=== PATIENT | female | born 1970 | race Caucasian/White ===

== ENCOUNTER → 2023-08-31 11:22 | Outpatient (REF) | payer OTHER, SELFPAY | LOC: HWEVLT 11:22 | PROVIDERS: ATTENDING PHYSICIAN Radiology Vascular & Interventional Radiology | DX: I83.891 Varicose veins of right lower extremity with other complications (principal) | CPT/HCPCS: 93971 ==

== ENCOUNTER → 2024-01-17 10:52 | Outpatient (REF) | payer OTHER, SELFPAY | LOC: HWWDC 10:52 | PROVIDERS: ATTENDING PHYSICIAN Family Medicine | DX: Z12.31 Encounter for screening mammogram for malignant neoplasm of breast (principal) | CPT/HCPCS: 77063; 77067 ==

== ENCOUNTER → 2024-10-31 17:53 | Outpatient (REF) | payer OTHER, SELFPAY | LOC: RAD 17:53 | PROVIDERS: ATTENDING PHYSICIAN Family Medicine | DX: M25.532 Pain in left wrist (principal) | CPT/HCPCS: 73110 ==

== ENCOUNTER → 2025-03-12 06:38 | Outpatient (REF) | payer OTHER, SELFPAY | LOC: HWWDC 06:38 | PROVIDERS: ATTENDING PHYSICIAN Family Medicine | DX: Z12.31 Encounter for screening mammogram for malignant neoplasm of breast (principal) | CPT/HCPCS: 77063; 77067 ==

== ENCOUNTER 2025-04-06 12:03 | Emergency (ER) | payer OTHER, SELFPAY ==
[2025-04-06 12:04] VITALS: BP 154/101
[2025-04-06 12:52] VITALS: BMI 30.2
[2025-04-06] MEDS: TORADOL 15 MG IV (13:03)
[2025-04-06] MEDS: NSS 1000 IV (13:04)
[2025-04-06 13:08] LABS: Hematocrit 39.1 % (37.0-47.0); Hemoglobin 13.3 g/dL (12.0-16.0); Mean Corp Hgb Conc. 34.0 g/dL (33.0-37.0); Mean Corpuscular Volume 85.7 fL (81.0-99.0); Nucleated Red Blood Cells % 0 %; Platelet Count 205 10^3/uL (130-400); Red Cell Dist. Width 12.4 % (11.5-14.5)
[2025-04-06 13:19] LABS: ALT (SGPT) 20 U/L (0-35); AST (SGOT) 21 U/L (14-36); Albumin 4.1 g/dl (3.5-5.0); Alkaline Phosphatase 120 U/L (38-126); Blood Urea Nitrogen 20 mg/dl (7-17); Calcium 9.6 mg/dl (8.4-10.2); Carbon Dioxide 26 mmol/L (22-30); Chloride 105 mmol/L (98-107); Estimated Creatinine Clearance 106 ml/min; Glucose 87 mg/dl (70-99); Lipase 41 U/L (23-300); Potassium 4.0 mmol/L (3.5-5.1); Sodium 136 mmol/L (135-145); Total Protein 7.0 g/dl (6.3-8.2); eGFR > 60.00
--- NOTE | 2025-04-06 13:21 | ED.GENMED ---
History of Present Illness
General
Chief Complaint: Abdominal Pain
Source: patient and spouse
Exam Limitations: none
Time Seen by Provider: 04/06/25 12:21
Nursing documentation reviewed up to this point in time: agreed with
History of Present Illness
History of Present Illness:
55-year-old female with past medical history of hypertension who presents to the emergency department with her for evaluation of abdominal pain. Patient reports onset of symptoms 2 days ago and they have been constant since that time. She
reports a sharp pain located in the left lower quadrant and occasionally radiates towards the flank. No clear triggering or relieving factors noted. She denies any associated nausea or vomiting. She has been mildly constipated last bowel movement
was Monday morning. She denies any dysuria, hematuria, change in urinary frequency. She denies any fever or chills. She denies any other acute complaints. She denies having had similar symptoms in the past. She denies any prior abdominal
surgeries.
Review of Systems
Review of Systems
All Other Systems: ROS reviewed and negative except as documented in HPI and ROS
Constitutional: Denies fever or chills
Respiratory: Denies trouble breathing
Cardiac: Denies chest pain
ABD/GI: Reports abdominal pain and constipated; Denies nausea or vomiting
: Denies dysuria, frequency, flank pain or bleeding
Musculoskeletal: Denies neck pain or back pain
Neurological: Denies dizzy or headache
Phy Exam
Physical Exam
Physical Exam:
General: Awake, alert, oriented x3; no acute distress
Head: Normocephalic, atraumatic
Eyes: Conjunctiva normal, sclera anicteric
Throat: Airway intact, handling secretions
Neck: Trachea midline
Lungs: Clear to auscultation bilaterally, no wheezing, rales, rhonchi
Heart: Regular rate and rhythm, no murmurs, gallops, or rubs
Abd: Soft, non distended, mild to moderate tenderness left lower quadrant with no peritoneal signs or appreciable masses
Back: No CVA tenderness
Neuro: Grossly intact
Skin: No rash in area of concern
Extremities: No edema in extremities, equal pulses in all extremities
Scores
Heart Failure Risk
Heart Failure Risk Score: Not Applicable
Heart Score for Chest Pain Patients
STEMI patient?: Not applicable
Withdrawal Assessment of Alcohol
Withdrawal Assessment Completed?: Not applicable
Course
Orders/Labs/Results
Orders:
Orders
04/06/25 12:53
CT Abd/pelvis W Iv Cont Urgent
Comment:
Reason For Exam: LLQ abd pain
0.9% Sodium Chloride 1000 ml [Nss] 1,000 ml IV BOLUS
Ketorolac [Toradol] 15 mg IV NOW STA
04/06/25 12:59
Complete Blood Count/With Diff Urgent
Comprehensive Metabolic Panel Urgent
Lipase Urgent
04/06/25 14:34
Lactate Level [Lactic Acid] Urgent
04/06/25 14:36
Amoxicillin 875 mg/Clav 125 mg [Augmentin 875 mg/125 mg] 1 tablet PO NOW STA
Morphine Sulfate 4 mg IV NOW STA
04/06/25 14:52
Urinalysis Reflex To Culture Urgent
Date Specimen was Collected: 04/06/25
Time Specimen was Collected: 13:20
Urine Microscopic Reflex Cult Urgent
Urine Culture Urgent
DELPHINE Source: U
Specimen Description:
Date Specimen was Collected: 04/06/25
Time Specimen was Collected: 13:20
Abnormal Lab Results
04/06/25 04/06/25
12:59 14:52
Absolute Neuts (auto) 8.8 H 10^3/uL
(1.4-6.5)
Absolute Lymphs (auto) 0.8 L 10^3/uL
(1.2-3.4)
Absolute Monos (auto) 0.7 H 10^3/uL
(0.1-0.6)
Neutrophils % 82.5 H %
(42.2-75.2)
Lymphocytes % 7.7 L %
(20.5-51.1)
BUN 20 H mg/dl
(7-17)
Creatinine 0.5 L mg/dL
(0.6-1.0)
Urine Ketones 2+ A
(Negative)
Leukocyte Esterase Rfl 1+ A
(Negative)
Urine Bacteria (Reflex) Few A
(Negative)
Urine Albumin (Reflex) 1+ A
(Neg - Trace)
04/06/25 12:59
04/06/25 12:59
Vital Signs
Initial and Last Documented VS:
Initial Vital Signs
Temp Pulse Resp BP Pulse Ox
36.8 C 113 16 154/101 98
04/06/25 12:04 04/06/25 12:04 04/06/25 12:04 04/06/25 12:04 04/06/25 12:04
Last Documented Vital Signs
Temp Pulse Resp BP Pulse Ox
36.8 C 89 18 140/98 100
04/06/25 12:04 04/06/25 14:02 04/06/25 14:02 04/06/25 14:55 04/06/25 14:55
MDM/Problems Addressed
Differential Diagnosis Includes:
Diverticulitis, nephrolithiasis, UTI, constipation
MDM/Problems Addressed:
55-year-old female presents for evaluation of left lower quadrant pain for the past few days associated with mild constipation. Hypertensive and tachycardic otherwise normal vitals. Physical exam as above. Will plan to place an IV and check labs
including a CBC and a CMP. Will check urinalysis. Will check CT of the abdomen pelvis. Will provide fluids and pain control. Will monitor closely reassess after the above.
Labs reviewed: CBC unremarkable, CMP no clinically significant abnormalities. Lipase normal. CT abdomen pelvis reviewed shows moderate acute colitis throughout the descending and proximal sigmoid colon�diagnostic possibilities include infectious
colitis, diverticulitis, ischemic colitis considered less likely; she does have severe diverticulosis. Large amount of fecal material in the proximal colon. Overall her clinical picture is really not consistent with acute colitis�she has actually
been constipated rather than having diarrhea and she has focal pain in the left side�clinical picture is more consistent with acute diverticulitis and especially given significant diverticular disease noted on CT I do think antibiotics are
indicated. Very low clinical suspicion for ischemic colitis especially given duration of symptoms�will add on lactate for completeness.
Lactate normal, pain is very well-controlled here, vital signs normal on reassessment. Stable for discharge on oral antibiotic. I did speak to the patient follow-up plan including need for follow-up with GI and likely colonoscopy after this acute
episode. Spoke about return precautions including fever or worsening pain. Spoke about dietary adjustments. Patient very comfortable with this plan. All questions answered.
Acute Exacerbation and/or Progression of Chronic Illness:
Acutely hypertensive likely pain related�will treat pain but hold on antihypertensives for now
Acute Exacerbation and/or Progression of Chronic Illness: HTN
*Radiology
Radiology exam reviewed: radiology read reviewed
*Pulse Oximetry
SaO2: 98
Oxygen Mode of Delivery: Room air
Patient hypoxic: no (98%)
*Critical Care Note
Total Time (30-74mins, 75-104mins- exclusive of procedures): Not Applicable
Data Reviewed
Source: patient and spouse
ED Attending Note
-
Portions of this chart may have been created with voice recognition software.� Occasional wrong word or��sound alike� substitutions may have occurred due to the inherent limitations of voice recognition software.
Discharge Plan
Departure
Patient Disposition: Home (Routine Discharge)
Date of Disposition: 04/06/25
Time of Disposition: 15:57
Patient with high blood pressure during this ER visit?: Yes
Discharge Problem:
Acute diverticulitis
Instructions: Diverticulitis (DC), Low-fiber diet
Prescriptions:
New
amoxicillin-pot clavulanate 875-125 mg tablet
1 tab PO BID Qty: 20 0RF
Referrals:
Sarkis Baca MD [Family Provider, Family Practice]
Prerna Can DO [Active, Gastroenterology] - Call in 1-3 days for appt
Activity Restrictions/Additional Instructions:
Thank you for visiting the Emergency Department at [facility].
1. Please schedule a follow up appointment as directed. Call first thing tomorrow morning to make an appointment.
2. If indicated, please take your medications as instructed and indicated on discharge paperwork.
3. If any of your symptoms do not improve, or persist, or become more severe within 6-12 hours, please return to the emergency department for further care.
4. Please return to the emergency department if you develop a headache, neck pain/stiffness, fever greater than 100.4F, chest pain, shortness of breath, persistent nausea, vomiting, slurred speech, difficulty walking, numbness/tingling, weakness,
signs of infection or any other symptoms that are worrisome to you.
Please call [phone] if you have any questions.
Interventions
Interventions:
*Risk Screen - Suicide Last Done: 04/06/25 12:04
*General Assessment Last Done: 04/06/25 12:52
*Neglect/Abuse Screening Last Done: 04/06/25 12:04
*ED- Fall Risk Assessment Last Done: 04/06/25 15:05
*ED COVID-19 Vaccine History Last Done: 04/06/25 15:05
QF-Ciuoos-Vlruvtoutp Assessment Last Done: 04/06/25 12:50
Discharge Date and Time
Print Language: [id number]
[2025-04-06 14:02] VITALS: BP 147/88
[2025-04-06] MEDS: AUGMENTIN 875 MG/125 MG 1 TABLET PO (14:41)
[2025-04-06] MEDS: MORPHINE SULFATE 4 MG IV (14:42)
[2025-04-06 14:55] VITALS: BP 140/98
[2025-04-06 15:00] VITALS: BP 142/85
[2025-04-06 15:15] LABS: Urine Character Clear (Clear)
[2025-04-06 15:42] LABS: Urine Urothelial Cell 0-2 /LPF (FEW)
[2025-04-06 15:43] LABS: Urine Red Blood Cell 0-2 /HPF (0-2)
[2025-04-06 16:00] VITALS: BP 133/82
== END 2025-04-06 16:23 | disposition home or self-care (01) ==
LOC: EMR 12:03
PROVIDERS: EMERGENCY PHYSICIAN Emergency Medicine; FAMILY PHYSICIAN Family Medicine
DX: K57.32 Diverticulitis of large intestine without perforation or abscess without bleeding (principal); K59.00 Constipation, unspecified; I10 Essential (primary) hypertension
CPT/HCPCS: 96374; 96375; 96361; 99284; 74177; 80053; 81003; 81015; 83605; 83690; 85025; 87086; Q9967